=== PATIENT | female | born 1960 | race Caucasian/White ===

== ENCOUNTER → 2016-09-30 | Outpatient (CLI) | payer BC ==
--- NOTE | 2016-10-02 14:48 | POLYSOMNOGRAPH REPORT ---
DATE OF STUDY: 09/30/2016. REFERRING PHYSICIAN: Dr. Livia Melara. CLINICAL DATA: The patient is a 56-year-old female with a BMI of 23.69. She is referred by neurology because of a history of headaches. She also has snoring and disturbed nocturnal sleep. She completed the [place] Sleepiness Scale and had a score of 7 out of a possible 24. This was a home sleep apnea test performed using the [employer] type 3 monitor. RECORDING RESULTS: Total recording time was 10 hours and patient estimated sleep time was 8.6 hours. RESPIRATORY DATA: There was no evidence of significant sleep apnea. The patient had a total of 17 respiratory events including 4 obstructive apneas, 1 mixed apneic, 9 central apneas, and 3 hypopneas. Hypopneas were scored by the 4% rule. The apnea hypopnea index was normal at 2.0 events per hour. The DEVORA was 2.0. The longest event was 22 seconds. OXIMETRY DATA: The mean saturation for the night was 95%. The minimum saturation was 91%. There were 0 minutes with saturations less than 89%. HEART RATE DATA: The minimum cardiac rate was 55 beats per minute. The mean heart rate was 62 beats per minute. SNORING DATA: Snoring was present throughout the test. IMPRESSIONS: No evidence of significant obstructive sleep apnea. RECOMMENDATIONS: It appears the patient's headaches were not related to sleep apnea. Further followup is deferred to Dr. Melara. The patient should be advised of the appropriate principles of sleep hygiene including having a regular sleep-wake schedule and to allow approximately 8 hours of sleep time on a nightly basis. MATTEO
== END | disposition home or self-care (01) ==
LOC: C.NEUR 10:00
PROVIDERS: ATTEND Internal Medicine Pulmonary Disease
DX: G47.33 Obstructive sleep apnea (adult) (pediatric) (principal); F41.8 Other specified anxiety disorders; G47.00 Insomnia, unspecified

== ENCOUNTER → 2016-09-30 | Outpatient (CLI) | payer BC ==
[~2016-09-30] VITALS: Ht 162.6 cm; Wt 62.7 kg
[2016-09-30 09:05] VITALS: BP 118/81; PULSE 74; Ht 162.6 cm; Wt 62.7 kg
== END | disposition home or self-care (01) ==
LOC: C.NEUR 08:50
PROVIDERS: ATTEND Internal Medicine Pulmonary Disease
DX: G47.33 Obstructive sleep apnea (adult) (pediatric) (principal); F41.8 Other specified anxiety disorders; G47.00 Insomnia, unspecified